=== PATIENT | male | born 1985 | race African-American/Black ===

== ENCOUNTER 2018-08-11 06:15 | Emergency (ER) | payer OTHER ==
[2018-08-11] MEDS ORDERED: predniSONE 20 MG TAB ONE (07:53)
--- NOTE | 2018-08-11 08:09 | CT ---
PRELIMINARY REPORT/[facility]/EMERGENTY AFTER-HOURS PROCEDURE CT Head Without Intravenous Contrast EXAM DATE/TIME: 08/11/2018 6:36 AM CLINICAL HISTORY: 32 years old, male; Signs and symptoms; Weakness, facial; Patient HX: M presents to the ed via [facility] to left sided facial droop and numbness onset 0300 today. PT reports having blurred vision yesterda y when he was drawing. PT. Denies any weakness. TECHNIQUE: Axial computed tomography images of the head/brain without intravenous contrast. All CT scans at this facility use at least one of these dose optimization techniques: automated expos ure control; mA and/or kV adjustment per patient size (includes targeted exams where dose is matched to clinical indication); or iterative reconstruction. COMPARISON: No relevant prior studies available. FINDINGS: Brain: No acute intracranial hemorrhage or mass effect. No definite acute infarct by CT. MRI could be more sensitive/specific for detection, as clinically di rected. Ventricles: Ventricle size is normal for age. Bones/joints: No definite acute skull fracture. Sinuses: Included paranasal sinuses are essentially clear. Mastoid air cells: No significant acute finding. IMPRESSION: 1. No acute intracranial bleed or mass effect. 2. No definite acute infarct by CT, see above. Thank you for allowing us to participate in the care of your patient. Dictated and Authenticated by: Gonzalo Mueller MD 08/11/2018 7:06 AM Central Time ([place] & [place]) FINAL REPORT CT BRAIN WITHOUT CONTRAST: Date: 08/11/18 FINDINGS/IMPRESSION: I agree with the preliminary report given by Mian. POS: [facility]
[2018-08-11] MEDS ORDERED: valACYclovir HCl 1 GM TAB PO SCH (08:15)
[2018-08-11] MEDS ORDERED: valACYclovir 500 MG TAB PO SCH (08:45)
== END 2018-08-11 08:58 ==
LOC: ERS 06:15
DX: G51.0 Bell's palsy (principal); I10 Essential (primary) hypertension
CPT/HCPCS: 70450; J7506